=== PATIENT | male | born 1995 | race African-American/Black ===

== ENCOUNTER 2019-11-23 04:41 | Emergency (ER) | payer OTHER ==
[2019-11-23 04:47] VITALS: RESP 18; TEMP 98.7
--- NOTE | 2019-11-23 04:53 | ED ---
Psych HPI - General Source: patient, EMS, RN notes reviewed, old records reviewed Mode of arrival: EMS - History of Present Illness MD Complaint: feels depressed, altered mental status -: days(s) Associated Psychiatric Symptoms: none History of same: Yes Quality: constant Improves With: none Worsens With: none Associated Symptoms: denies other symptoms Treatments Prior to Arrival: placed on mental health hold If Self Harm: admits thoughts of self harm <Get Victoria - Last Filed: 11/23/19 07:21> <Get Gilliland - Last Filed: 11/23/19 09:02> - General Chief Complaint: Psychiatric Symptoms Stated Complaint: Mental Health Time Seen by Provider: 11/23/19 04:52 - History of Present Illness Initial Comments: This is a 23-year-old male here for evaluation patient for evaluation regards psychiatric evaluation. Patient is unable to give accurate history refusing to provide a clear denying drugs or alcohol. Patient states he walked here from [place], seeing ghosts and dragons. Patient states he has history of mental health but unsure of what his history is. Patient has no medical history. (Get Victoria) - Related Data Allergies Allergy/AdvReac Type Severity Reaction Status Date / Time No Known Allergies Allergy Verified 11/23/19 04:48 Review of Systems ROS Other: All systems not noted in ROS Statement are negative. <Get Victoria - Last Filed: 11/23/19 07:21> ROS Other: All systems not noted in ROS Statement are negative. <Get Gilliland - Last Filed: 11/23/19 09:02> ROS Statement: Those systems with pertinent positive or pertinent negative responses have been documented in the HPI. Past Medical History Past Medical History: No Reported History History of Any Multi-Drug Resistant Organisms: None Reported Past Surgical History: No Surgical Hx Reported Past Psychological History: Schizophrenia Smoking Status: Current every day smoker Past Alcohol Use History: Daily Past Drug Use History: Cocaine <Get Victoria - Last Filed: 11/23/19 07:21> General Exam Limitations: no limitations General appearance: alert, in no apparent distress, anxious Head exam: Present: atraumatic, normocephalic, normal inspection Eye exam: Present: normal appearance, PERRL, EOMI. Absent: scleral icterus, conjunctival injection, periorbital swelling ENT exam: Present: normal exam, mucous membranes moist Neck exam: Present: normal inspection. Absent: tenderness, meningismus, lymphadenopathy Respiratory exam: Present: normal lung sounds bilaterally. Absent: respiratory distress, wheezes, rales, rhonchi, stridor Cardiovascular Exam: Present: regular rate, normal rhythm, normal heart sounds. Absent: systolic murmur, diastolic murmur, rubs, gallop, clicks GI/Abdominal exam: Present: soft, normal bowel sounds. Absent: distended, tenderness, guarding, rebound, rigid Extremities exam: Present: normal inspection, full ROM, normal capillary refill. Absent: tenderness, pedal edema, joint swelling, calf tenderness Back exam: Present: normal inspection Neurological exam: Present: alert, oriented X3, CN II-XII intact Psychiatric exam: Present: normal affect, normal mood Skin exam: Present: warm, dry, intact, normal color. Absent: rash <Get Victoria - Last Filed: 11/23/19 07:21> Course <Get Victoria - Last Filed: 11/23/19 07:21> Vital Signs 11/23/19 04:44 Temperature 98.7 F Pulse Rate 100 Respiratory 18 Rate Blood Pressure 145/87 O2 Sat by Pulse 99 Oximetry - Reevaluation(s) Reevaluation #1: 11/23/19 07:00 Record is reviewed (Get Victoria) Reevaluation #2: 11/23/19 07:00 Medically clear for psychiatric evaluation (Get Victoria) Medical Decision Making <Get Gilliland - Last Filed: 11/23/19 09:02> - Medical Decision Making EPS evaluated the patient and determined that he was safe to home. Patient denied being suicidal or homicidal. Patient states he just wanted to get back on his medications but he was requesting Adderall which we do not dispense. Patient states he agrees with a safety plan (Get Gilliland) - Lab Data Lab Results 11/23/19 Range/Units 04:56 Urine Opiates Screen Not Detected (NotDetected) Ur Oxycodone Screen Not Detected (NotDetected) Urine Methadone Screen Not Detected (NotDetected) Ur Propoxyphene Screen Not Detected (NotDetected) Ur Barbiturates Screen Not Detected (NotDetected) U Tricyclic Antidepress Not Detected (NotDetected) Ur Phencyclidine Scrn Not Detected (NotDetected) Ur Amphetamines Screen Not Detected (NotDetected) U Methamphetamines Scrn Not Detected (NotDetected) U Benzodiazepines Scrn Not Detected (NotDetected) Urine Cocaine Screen Not Detected (NotDetected) U Marijuana (THC) Screen Detected H (NotDetected) Disposition <Get Victoria - Last Filed: 11/23/19 07:21> Is patient prescribed a controlled substance at d/c from ED?: No Time of Disposition: 09:02 <Get Gilliland - Last Filed: 11/23/19 09:02> Clinical Impression: Mood disorder Disposition: HOME SELF-CARE Condition: Good Instructions (If sedation given, give patient instructions): Mood Disorders (ED) Referrals: None,Stated [Primary Care Provider] - 1-2 days
[2019-11-23 05:23] LABS: Amphetamine Screen,Urine Not Detected (NotDetected); Barbiturate Screen,Urine Not Detected (NotDetected); Benzodiazepines Screen,Urine Not Detected (NotDetected); Cocaine Screen,Urine Not Detected (NotDetected); Methadone Screen, Urine Not Detected (NotDetected); Opiate Screen,Urine Not Detected (NotDetected); Oxycodone Screen, Urine Not Detected (NotDetected); Phencyclidine Screen,Urine Not Detected (NotDetected); Tricyclic Antidepressant,Urine Not Detected (NotDetected); Urn Cannabinoid Scrn Detected (NotDetected)
[2019-11-23 09:13] VITALS: BP 113/55; PULSE 78
== END 2019-11-23 09:05 | disposition home or self-care (01) ==
LOC: EC 04:41
DX: F39 Unspecified mood [affective] disorder (principal); F17.200 Nicotine dependence, unspecified, uncomplicated
CPT/HCPCS: 80306; 82075; 99285

== ENCOUNTER 2019-11-24 10:24 | Emergency (ER) | payer OTHER ==
[2019-11-24 10:39] VITALS: BP 143/85; PULSE 80; RESP 20; TEMP 97.7
[2019-11-24 12:19] LABS: Amphetamine Screen,Urine Not Detected (NotDetected); Barbiturate Screen,Urine Not Detected (NotDetected); Benzodiazepines Screen,Urine Not Detected (NotDetected); Cocaine Screen,Urine Not Detected (NotDetected); Methadone Screen, Urine Not Detected (NotDetected); Opiate Screen,Urine Not Detected (NotDetected); Oxycodone Screen, Urine Not Detected (NotDetected); Phencyclidine Screen,Urine Not Detected (NotDetected); Tricyclic Antidepressant,Urine Not Detected (NotDetected); Urn Cannabinoid Scrn Not Detected (NotDetected)
--- NOTE | 2019-11-24 13:25 | ED ---
Psych HPI - General Chief Complaint: Psychiatric Symptoms Stated Complaint: Mental Health Time Seen by Provider: 11/24/19 10:30 Source: patient, EMS Mode of arrival: EMS - History of Present Illness Initial Comments: The patient is a 23-year-old male with past medical history of schizophrenia presents emergency Department with medication request. The patient was seen in our emergency department earlier today. He reported to manager social services that he was hearing voices. He does have history of schizophrenia and states to me that he was hospital is at [facility] recently. He was discharged with several prescriptions. States he's been unable to pick them up and due to this he is hearing voices. Social work did clear him earlier today. He is not suicidal or homicidal. No aggressive auditory hallucinations. He states when he left he did not get a prescription for medications and therefore is returning in order to have these filled. He cannot tell me what they were. He is requesting to call [facility] to be informed of which medications these are. He denies any drug use. Denies any headaches, visual changes, fevers or chills. States he is homeless. Has no family at bedside. There are no alleviating, precipitating or modifying factors - Related Data Allergies Allergy/AdvReac Type Severity Reaction Status Date / Time No Known Allergies Allergy Verified 11/23/19 04:48 Review of Systems ROS Statement: Those systems with pertinent positive or pertinent negative responses have been documented in the HPI. ROS Other: All systems not noted in ROS Statement are negative. Past Medical History Past Medical History: No Reported History History of Any Multi-Drug Resistant Organisms: None Reported Past Surgical History: No Surgical Hx Reported Past Psychological History: Depression, Schizophrenia Smoking Status: Current every day smoker Past Alcohol Use History: Daily Past Drug Use History: Cocaine General Exam Limitations: no limitations General appearance: alert, in no apparent distress Head exam: Present: atraumatic, normocephalic, normal inspection Eye exam: Present: normal appearance, PERRL, EOMI. Absent: scleral icterus, conjunctival injection, periorbital swelling ENT exam: Present: normal exam, mucous membranes moist Neck exam: Present: normal inspection. Absent: tenderness, meningismus, lymphadenopathy Respiratory exam: Present: normal lung sounds bilaterally. Absent: respiratory distress, wheezes, rales, rhonchi, stridor Cardiovascular Exam: Present: regular rate, normal rhythm, normal heart sounds. Absent: systolic murmur, diastolic murmur, rubs, gallop, clicks GI/Abdominal exam: Present: soft, normal bowel sounds. Absent: distended, tenderness, guarding, rebound, rigid Extremities exam: Present: normal inspection, full ROM, normal capillary refill. Absent: tenderness, pedal edema, joint swelling, calf tenderness Back exam: Present: normal inspection Neurological exam: Present: alert, oriented X3, CN II-XII intact Psychiatric exam: Present: normal affect, normal mood Skin exam: Present: warm, dry, intact, normal color. Absent: rash Course Vital Signs 11/24/19 11/24/19 11/24/19 10:31 10:38 11:38 Temperature 97.7 F Pulse Rate 80 Respiratory 20 20 20 Rate Blood Pressure 143/85 O2 Sat by Pulse 100 Oximetry 11/24/19 11/24/19 11/24/19 12:00 13:00 13:54 Temperature Pulse Rate Respiratory 20 20 20 Rate Blood Pressure O2 Sat by Pulse Oximetry Medical Decision Making - Medical Decision Making The patient was placed into room 13. A thorough history and physical exam was performed. I did review the patient's previous ER stay. I did request a drug screen. Breathalyzer testing demonstrates the patient's alcohol level is 0. EPS does evaluate the patient. They do call [facility] may do not have any evidence of the patient was hospitalized there. He does provide us with his pharmacy and the called however the patient has never filled a prescription her pharmacy. I did inform the patient and I am unable to figure out what medications he is on. Does not meet inpatient criteria facility. Because of this at this time the patient was discharged home. He is given outpatient resources. He is to return to the emergency room for any new or worsening symptoms. He needs to follow up with his psychiatrist or whoever filled his medications as we are unable to track them down. The patient was discharged home in stable condition - Lab Data Lab Results 11/24/19 Range/Units 11:50 Urine Opiates Screen Not Detected (NotDetected) Ur Oxycodone Screen Not Detected (NotDetected) Urine Methadone Screen Not Detected (NotDetected) Ur Propoxyphene Screen Not Detected (NotDetected) Ur Barbiturates Screen Not Detected (NotDetected) U Tricyclic Antidepress Not Detected (NotDetected) Ur Phencyclidine Scrn Not Detected (NotDetected) Ur Amphetamines Screen Not Detected (NotDetected) U Methamphetamines Scrn Not Detected (NotDetected) U Benzodiazepines Scrn Not Detected (NotDetected) Urine Cocaine Screen Not Detected (NotDetected) U Marijuana (THC) Screen Not Detected (NotDetected) Disposition Clinical Impression: Psychosis Disposition: HOME SELF-CARE Condition: Stable Instructions (If sedation given, give patient instructions): Bipolar Disorder (DC) Additional Instructions: Please follow-up with your primary care doctor in 2-4 days. Return to the emergency room for any new or worsening symptoms Is patient prescribed a controlled substance at d/c from ED?: No Referrals: None,Stated [Primary Care Provider] - 1-2 days Time of Disposition: 13:25
== END 2019-11-24 13:55 | disposition home or self-care (01) ==
LOC: EC 10:24
DX: F20.9 Schizophrenia, unspecified (principal); F17.200 Nicotine dependence, unspecified, uncomplicated; Z59.0 Homelessness
CPT/HCPCS: 80306; 82075; 99284